=== PATIENT | female | born 1995 | race Caucasian/White ===

== ENCOUNTER 2017-12-08 04:02 | Emergency (ER) | payer SELFPAY ==
[2017-12-08 04:09] VITALS: BP 128/84
[2017-12-08] MEDS ORDERED: ATIVAN PO ONE (05:13)
[2017-12-08] MEDS ORDERED: NORCO 7.5/325 PO ONE (05:13)
--- NOTE | 2017-12-08 05:18 | Emergency Department Report ---
- General Chief complaint: Skin/Abscess/Foreign Body Stated complaint: RIGHT LEG PAIN Time Seen by Provider: 12/08/17 05:13 Source: patient Mode of arrival: Ambulatory Limitations: No Limitations - History of Present Illness Initial comments: 22-year-old female comes in complaining of a painful boil to the right groin 3 days. Patient denies any fever chills or nausea no vomiting no discharge from boil. Reports that the bolus very painful and tender to touch. She does report that she shaves her private area. Patient has no known drug allergies currently takes no medications. MD complaint: abscess/boil -: days(s) (3) Location: genitals Severity: severe Severity scale (0 -10): 10 Quality: burning, stabbing Consistency: constant Improves with: none Worsens with: movement Context: none Associated symptoms: denies other symptoms Treatments Prior to Arrival: none - Related Data Previous Rx's Medication Instructions Recorded Last Taken Type Doxycycline [Vibramycin CAP] 100 mg PO Q12HR #20 capsule 07/19/15 Unknown Rx metroNIDAZOLE [Flagyl] 500 mg PO Q12HR #20 tab 07/19/15 Unknown Rx Cephalexin [Keflex] 500 mg PO BID #20 capsule 12/08/17 Unknown Rx Ibuprofen [Motrin 800 MG tab] 800 mg PO Q8HR PRN #15 tablet 12/08/17 Unknown Rx Allergies Allergy/AdvReac Type Severity Reaction Status Date / Time No Known Allergies Allergy Verified 12/26/15 19:26 Abscess Boil HPI - HPI Chief Complaint: Skin/Abscess/Foreign Body Stated Complaint: RIGHT LEG PAIN Time Seen by Provider: 12/08/17 05:13 Home Medications: Previous Rx's Medication Instructions Recorded Last Taken Type Doxycycline [Vibramycin CAP] 100 mg PO Q12HR #20 capsule 07/19/15 Unknown Rx metroNIDAZOLE [Flagyl] 500 mg PO Q12HR #20 tab 07/19/15 Unknown Rx Cephalexin [Keflex] 500 mg PO BID #20 capsule 12/08/17 Unknown Rx Ibuprofen [Motrin 800 MG tab] 800 mg PO Q8HR PRN #15 tablet 12/08/17 Unknown Rx Allergies/Adverse Reactions: Allergies Allergy/AdvReac Type Severity Reaction Status Date / Time No Known Allergies Allergy Verified 12/26/15 19:26 ED Review of Systems ROS: Stated complaint: RIGHT LEG PAIN Other details as noted in HPI Constitutional: denies: chills, fever Eyes: denies: eye pain, eye discharge, vision change ENT: denies: ear pain, throat pain Respiratory: denies: cough, shortness of breath, wheezing Cardiovascular: denies: chest pain, palpitations Endocrine: no symptoms reported Gastrointestinal: denies: abdominal pain, nausea, diarrhea Genitourinary: denies: urgency, dysuria, discharge Musculoskeletal: denies: back pain, joint swelling, arthralgia Skin: lesions (boil to right groin area) Neurological: denies: headache, weakness, paresthesias Psychiatric: denies: anxiety, depression Hematological/Lymphatic: denies: easy bleeding, easy bruising ED Past Medical Hx - Past Medical History Hx Hypertension: No Hx Congestive Heart Failure: No Hx Diabetes: No Hx Deep Vein Thrombosis: No Hx Renal Disease: No Hx Sickle Cell Disease: No Hx Seizures: No Hx Asthma: Yes (ALBUTEROL AND AVAIR - NOT IN USE AT THIS TIME - 03/05 LAST ATTACK ) Hx COPD: No - Surgical History Additional Surgical History: left foot - Social History Smoking Status: Current Every Day Smoker Substance Use Type: None - Medications Home Medications: Home Medications Medication Instructions Recorded Confirmed Last Taken Type Doxycycline [Vibramycin CAP] 100 mg PO Q12HR #20 capsule 07/19/15 Unknown Rx metroNIDAZOLE [Flagyl] 500 mg PO Q12HR #20 tab 07/19/15 Unknown Rx Cephalexin [Keflex] 500 mg PO BID #20 capsule 12/08/17 Unknown Rx Ibuprofen [Motrin 800 MG tab] 800 mg PO Q8HR PRN #15 tablet 12/08/17 Unknown Rx ED Physical Exam - General Limitations: No Limitations ED Course Vital Signs 12/08/17 12/08/17 04:04 04:21 Temperature 98.6 F 98.6 F Pulse Rate 99 H 96 H Respiratory 18 16 Rate Blood Pressure 128/84 128/84 O2 Sat by Pulse 98 99 Oximetry - I & D Right Groin Blade Size: 11 I & D Procedure: betadine prep, sterile drapes applied, sterile dressing applied Progress: Patient tolerated procedural fair. ED Medical Decision Making - Medical Decision Making Patient has been evaluated by this provider fast track. I discussed the patient that will need to incision and drain the boil. I discussed the patient was give her [place] and Ativan to help with the pain to calm her nerves down. I have placed lidocaine topical 2 x 2 to top of the boil. Critical care attestation.: If time is entered above; I have spent that time in minutes in the direct care of this critically ill patient, excluding procedure time. ED Disposition Clinical Impression: Boil of groin Disposition: DC- TO HOME OR SELFCARE Is pt being admited?: No Does the pt Need Aspirin: No Condition: Stable Instructions: Furunculosis and Carbunculosis (ED) Additional Instructions: Please complete antibiotics as prescribed. Please change bandage daily. Please follow-up with the primary care provider if symptoms persist or gets worse. Prescriptions: Cephalexin [Keflex] 500 mg PO BID #20 capsule Ibuprofen [Motrin 800 MG tab] 800 mg PO Q8HR PRN #15 tablet PRN Reason: Pain Referrals: PRIMARY CARE, [Primary Care Provider] - 3-5 Days Forms: Accompanied Note, Work/School Release Form(ED)
== END 2017-12-08 05:50 | disposition home or self-care (01) ==
LOC: ED 04:02
DX: L02.224 Furuncle of groin (principal); J45.909 Unspecified asthma, uncomplicated; F17.200 Nicotine dependence, unspecified, uncomplicated

== ENCOUNTER 2018-02-01 22:44 | Emergency (ER) | payer SELFPAY ==
[2018-02-01 22:52] VITALS: BP 135/86
--- NOTE | 2018-02-02 00:21 | Emergency Department Report ---
ED Back Pain/Injury HPI - General Chief Complaint: Back Pain/Injury Stated Complaint: FALL Time Seen by Provider: 02/01/18 23:24 Source: patient Limitations: No Limitations - History of Present Illness Initial Comments: This is a 22-year-old -Portuguese female presents with low back pain that started today. She is in the process of moving and attempt to lift a box and that gave as she began to stand up. She reports feeling the scene while bending over and decided to stand up and as she stood she felt sharp pains in lower back. The pain sent her to her knees. She fell into the stairs and screened for help. The pain is in the medial lower back. Pain is 10 out of 10 on pain scale. The pain is sharp and intermittent. Pain is worse with movement or when she leans back. She is unable to walk secondary pain. Patient is in a wheelchair crying. Denies numbness and tingling, radiating pain , frequency, urgency, dysuria, and fever. MD Complaint: back pain -: This evening Similar Symptoms Previously: No Place: home Radiation: none Severity: severe Severity scale (0 -10): 10 Quality: sharp, aching Consistency: intermittent Improves With: none Worsens With: movement, supine, sitting upright, walking Context: while lifting Associated Symptoms: difficulty walking. denies: confusion, weakness, chest pain, numbness, cough, difficulty urinating, diaphoresis, incontinence, fever/ chills, constipation, headaches, abdominal pain, loss of appetite, malaise, nausea/vomiting, rash, seizure, shortness of breath, syncope - Related Data Previous Rx's Medication Instructions Recorded Last Taken Type RX: Doxycycline [Vibramycin CAP] 100 mg PO Q12HR #20 capsule 07/19/15 Unknown Rx metroNIDAZOLE [Flagyl] 500 mg PO Q12HR #20 tab 07/19/15 Unknown Rx Cephalexin [Keflex] 500 mg PO BID #20 capsule 12/08/17 Unknown Rx RX: Ibuprofen [Motrin 800 MG tab] 800 mg PO Q8HR PRN #15 tablet 12/08/17 Unknown Rx Acetaminophen/Codeine [Tylenol 1 tab PO Q6H PRN #20 tab 02/02/18 Unknown Rx /Codeine # 3 tab] Prednisone [predniSONE 10 mg 10 mg PO .TAPER #1 tab.ds.pk 05/14/18 Unknown Rx (6-Day Pack, 21 Tabs)] RX: Cyclobenzaprine HCl [Flexeril 5 mg PO TID PRN #20 tab 02/02/18 Unknown Rx 5 MG TAB] Allergies Allergy/AdvReac Type Severity Reaction Status Date / Time No Known Allergies Allergy Verified 12/26/15 19:26 ED Review of Systems ROS: Stated complaint: FALL Other details as noted in HPI Constitutional: denies: chills, fever Respiratory: denies: cough, shortness of breath, wheezing Cardiovascular: denies: chest pain, palpitations Gastrointestinal: denies: abdominal pain, nausea, vomiting, diarrhea Genitourinary: denies: urgency, dysuria, frequency, discharge Musculoskeletal: back pain (immediate low back pain) Neurological: denies: headache, weakness, numbness, paresthesias Psychiatric: denies: anxiety, depression ED Past Medical Hx Family history: no significant family history ED Back Pain Physical Exam - Exam General: Vital signs noted. No acute distress. Obese. Alert and acting appropriately. Back/Abdomen: Yes Sacroiliac Tenderness (moderate tenderness midline at line at L5, muscle spasm noted at right sacroiliac creast, unable to tolerate flexion), No Abdominal Tenderness, No Perithoracic Tenderness, No Perilumbar Tenderness, No Flank Tenderness, No Straight Leg Raise Pain Neuro: Yes Normal Sensation, Yes Normal DTR's, No Motor Weakness, No Normal Gait (unable to assess 2/2 pain) ED Course Vital Signs 02/01/18 22:47 Temperature 98.6 F Pulse Rate 81 Respiratory 20 Rate Blood Pressure 135/86 O2 Sat by Pulse 99 Oximetry ED Medical Decision Making - Radiology Data Radiology results: report reviewed EXAM: XR SPINE LUMBOSACRAL 2-3V HISTORY: mid lower back pain TECHNIQUE: Three views lumbar spine were obtained. FINDINGS: There is znhz-wa-twdttgea narrowing of the L3-4, L4-5 and L5-S1 disc. The alignment appears normal. There is no evidence of fracture. The SI joints appear normal. The soft tissues well maintained. IMPRESSION: Vpzk-je-uklmkkcp disc degeneration at the L3-L4, L4-L5, and L5-S1 disc space levels. No evidence of fracture or acute injury. - Medical Decision Making This is a 22-year-old -Portuguese female who presents with low back pain that started this afternoon while lifting a box. Patient was examined by me. Vitals are stable. She is in acute distress. Given Flexeril real milligrams by mouth, dexamethasone 8 mg IM, Toradol 30 mg IM while in ER. Obtained a UA, urine , x-ray of L-spine. Urine and test normal. X-ray findings Physical findings of Ysro-rh-biwxdoxr disc degeneration at the L3-L4, L4-L5, and L5-S1 disc space levels. No evidence of fracture or acute injury. Susceptible of muscle strain of low back muscles. Patient informed of results. Start tylenol #3, cyclobenzaprine, and prednisone taper. Plan discussed with patient to discharge home and treat outpatient. Patient discharged home in stable condition. Follow up with PCP in 2-3 days. Critical care attestation.: If time is entered above; I have spent that time in minutes in the direct care of this critically ill patient, excluding procedure time. ED Disposition Clinical Impression: Muscle spasm of back, Strain of fascia of lower back Disposition: - TO HOME OR SELFCARE Is pt being admited?: No Does the pt Need Aspirin: No Condition: Stable Instructions: Low Back Strain (ED), Acute Low Back Pain (ED) Additional Instructions: Rest Use ice or heat on affected area for 20 minutes and off for 2 hours. Take pain medication as needed for pain. Don't drive or operate heavy machinery while taking muscle relaxers because they may cause drowsiness. Follow up with Primary Care Provider in 2-3 days. Prescriptions: Acetaminophen/Codeine [Tylenol /Codeine # 3 tab] 1 tab PO Q6H PRN #20 tab PRN Reason: Pain RX: Cyclobenzaprine HCl [Flexeril 5 MG TAB] 5 mg PO TID PRN #20 tab PRN Reason: Muscle Spasm Prednisone [predniSONE 10 mg (6-Day Pack, 21 Tabs)] 10 mg PO .TAPER #1 tab.ds.pk Referrals: [facility] [Outside] - 3-5 Days [facility] [Outside] - 3-5 Days [facility] [Outside] - 3-5 Days Forms: Accompanied Note Time of Disposition: 02:05 Print Language: KAZAKH
[2018-02-02] MEDS ORDERED: FLEXERIL PO ONE (00:22)
[2018-02-02] MEDS ORDERED: TORADOL IM ONE (00:22)
[2018-02-02] MEDS ORDERED: DECADRON IM ONE (00:23)
[2018-02-02 00:32] LABS: Bilirubin,Urine NEG (Negative); Blood,Urine NEG (Negative); Color,Urine Yellow (Yellow); Mucus,Urine FEW /HPF; Protein,Urine <15 mg/dL mg/dL (Negative); Urobilinogen,Urine < 2.0 mg/dL (<2.0); WBC,Urine < 1.0 /HPF (0.0-6.0)
[2018-02-02 00:35] LABS: HCG Qualitative,Urine Negative (Negative)
--- NOTE | 2018-02-02 01:49 | XRay Report ---
FINAL REPORT EXAM: XR SPINE LUMBOSACRAL 2-3V HISTORY: mid lower back pain TECHNIQUE: Three views lumbar spine were obtained. FINDINGS: There is ekek-rq-sbjhpfgi narrowing of the L3-4, L4-5 and L5-S1 disc. The alignment appears normal. There is no evidence of fracture. The SI joints appear normal. The soft tissues well maintained. IMPRESSION: Ssym-gv-gfbpskrp disc degeneration at the L3-L4, L4-L5, and L5-S1 disc space levels. No evidence of fracture or acute injury.
== END 2018-02-02 02:31 | disposition home or self-care (01) ==
LOC: ED 22:44
DX: S39.012A Strain of muscle, fascia and tendon of lower back, initial encounter (principal); X50.9XXA Other and unspecified overexertion or strenuous movements or postures, initial encounter; Y93.89 Activity, other specified; Y99.8 Other external cause status; Y92.098 Other place in other non-institutional residence as the place of occurrence of the external cause
CPT/HCPCS: 72100; 81001; 81025; 96372; 99284; J1100; J1885

== ENCOUNTER 2018-06-29 22:50 | Emergency (ER) | payer SELFPAY ==
[2018-06-29 22:58] VITALS: BP 124/97
[2018-06-29] MEDS ORDERED: NACL 0.9% 1000 ML 1,000 ML IV ONE (23:06)
[2018-06-29 23:57] LABS: Basophils % (Auto) 0.4 % (0.0-1.8); Eosinophils # (Auto) 0.1 K/mm3 (0.0-0.4); Eosinophils % (Auto) 1.1 % (0.0-4.3); Hemoglobin 14.8 gm/dl (10.1-14.3); Lymphocytes # (Auto) 2.2 K/mm3 (1.2-5.4); Lymphocytes % (Auto) 17.3 % (13.4-35.0); Mean Corpuscular HGB Conc 33 % (30-34); Mean Corpuscular Hemoglobin 30 pg (28-32); Mean Corpuscular Volume 91 fl (79-97); Monocytes % (Auto) 8.1 % (0.0-7.3); Platelet Count 477 K/mm3 (140-440); Red Blood Count 4.96 M/mm3 (3.65-5.03); Red Cell Distribution Width 13.6 % (13.2-15.2)
[2018-06-30 03:31] LABS: Bilirubin,Urine NEG (Negative); Blood,Urine NEG (Negative); Color,Urine Amber (Yellow); Mucus,Urine 2+ /HPF
[2018-06-30 03:34] LABS: HCG Qualitative,Urine Negative (Negative)
== END 2018-06-30 03:05 | disposition left against medical advice (07) ==
LOC: ED 22:50
DX: R10.9 Unspecified abdominal pain (principal); Z53.21 Procedure and treatment not carried out due to patient leaving prior to being seen by health care provider
CPT/HCPCS: 36415; 81001; 81025; 85025; 86850; 86900; 86901

== ENCOUNTER 2020-09-06 01:48 | Emergency (ER) | payer OTHER ==
[2020-09-06] MEDS ORDERED: IBUPROFEN 600 MG TAB PO ONE (07:52)
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
[2020-09-06 09:12] VITALS: BP 144/91
== END 2020-09-06 09:44 | disposition home or self-care (01) ==
LOC: ED 01:48
DX: S39.012A Strain of muscle, fascia and tendon of lower back, initial encounter (principal); R07.89 Other chest pain; F17.200 Nicotine dependence, unspecified, uncomplicated; Z98.890 Other specified postprocedural states; Z79.899 Other long term (current) drug therapy; Z91.041 Radiographic dye allergy status; V49.59XA Passenger injured in collision with other motor vehicles in traffic accident, initial encounter; Y92.410 Unspecified street and highway as the place of occurrence of the external cause; Y93.89 Activity, other specified; Y99.8 Other external cause status
CPT/HCPCS: 71046